=== PATIENT | male | born 1950 | race Caucasian/White ===

== ENCOUNTER 2017-01-28 11:03 | Inpatient (IN) | payer OTHER, MEDICARE ==
--- NOTE | ~2017-01-28 | OR ---
Unit #: [id number] #: [id number] Patient: ARPIT VALENZUELA [id number] [address] [place], [place] [address] [id number] I MR#: [id number] NAME: ARPIT VALENZUELA. ROOM: [facility] Date of Procedure: 01/29/2017 Admission Date: 01/28/2017 Surgeon: Dimitrios Greenwood M.D. : 1950 Attending Physician: Bailee Parra M.D. Primary Care Physician: Pantera Riggins M.D. OPERATIVE REPORT JOB NOTE: CC: HIPS PHYSICIAN. PREOPERATIVE DIAGNOSIS Anemia. POSTOPERATIVE DIAGNOSIS Anemia. PROCEDURE PERFORMED Esophagogastroduodenoscopy. ANESTHESIA Monitored anesthesia care. FINDINGS The patient had normal EGD except for small hiatal hernia. No blood present. No varices present. SPECIMENS None. COMPLICATIONS None apparent. CONDITION The patient tolerated the procedure well. INDICATIONS FOR PROCEDURE The patient is a 66-year-old white male, who drinks alcohol on a regular basis. He presents with significant anemia. His PT, PTT, and platelet count were normal. He presents at this time for evaluation by upper endoscopy. At this point, he does not want colonoscopy prep unless absolutely necessary. DESCRIPTION OF PROCEDURE After obtaining informed consent, the patient was brought to the endoscopy suite, and after adequate monitored anesthesia care, had the endoscope placed through the mouth into the upper esophagus under direct vision. It was advanced to the second and third portion of the duodenum without difficulty with the lumen always in view. The duodenum was normal as was the duodenal bulb. The pylorus opened normally. There was no blood present. Distal stomach was normal and no blood was present. On Unit #: [id number] #: [id number] Patient: ARPIT VALENZUELA retroflexing back to the GE junction, there was a small hiatal hernia, but no other abnormalities were found in the proximal third, middle third, or incisura. On pulling back above the GE junction, there were no varices seen. There was no stenosis, stricture, or neoplasm seen. No significant esophagitis. The remaining portion of the esophagus was within normal limits. Laryngeal structures were grossly normal as viewed from above. The scope was removed without difficulty. The patient went from the endoscopy suite to recovery area in stable condition. RECOMMENDATIONS Proceed with colonoscopy tomorrow. We will prep the patient today. Dictated by... Jamar Nunez/cynthia TD: 01/30/2017 00:54 JOB #: [id number] CC: [facility] OPERATIVE REPORT Page 1 of 1 X Dimitrios Greenwood MD X PROCEDURE OPERATIVE NOTE
--- NOTE | ~2017-01-28 | CR72 ---
[facility] A Service of [facility] & [facility] RADIOLOGY TEXT RESULTS PATIENT: ARPIT VALENZUELA LOCATION: [facility] [id number] : [birth year] UNIT #: [id number] AGE: [address]: Narda Alfred MD SEX: M ORDER DR: [id number] [facility] [address] [facility]. [place], [place] [address] [id number] I MR#: [id number] Acc #: [id number] NAME: ARPIT VALENZUELA. : 1950 SEX: M STUDY DATE/TIME: 01/28/2017 11:40 UNIT: [facility] ROOM: [id number] STUDY DESCRIPTION: CR Chest Single View Portable Attending Physician: Narda Alfred M.D. Ordering Physician: Ed Doctor [id number] [facility] Primary Care Physician: Pantera Riggins M.D. MEDICAL IMAGING REPORT This report is preliminary unless electronic signature is present EXAM Portable chest 01/28/2017 HISTORY 66-year-old male with cough and dyspnea for 4 days. Hypertension. Comparison chest 01/18/2012 FINDINGS Frontal chest demonstrates cardiomegaly with mild central vascular congestion and bilateral interstitial opacities, left greater than right. Small left pleural effusion not excluded. Early congestive failure not excluded in the appropriate clinical setting. No pneumothorax. IMPRESSION Cardiomegaly with mild central vascular congestion and bilateral interstitial opacities, left greater than right. Early congestive failure not excluded in the appropriate clinical setting. Questionable small left pleural effusion. Dictated by... Alireza Beckett M.D. THIS IS AN ELECTRONICALLY VERIFIED REPORT Alireza Beckett M.D. at 01/28/2017 2:59 PM GIOVANNA/sabine TD: 01/28/2017 14:53 JOB #: [id number] MEDICAL IMAGING REPORT Page 1 of 1 COPY
--- NOTE | ~2017-01-28 | CO ---
Unit #: [id number] #: [id number] Patient: ARPIT VALENZUELA [id number] [facility]. [place], [place] [address] [id number] I MR#: [id number] NAME: ARPIT VALENZUELA ROOM: [facility] Age: 66 Sex: M Admission Date: 01/28/2017 : 1950 Attending Physician: Narda Alfred M.D. Primary Care Physician: Pantera Rgigins M.D. Requesting Physician: Narda Alfred M.D. Consultation Date: 01/28/2017 CONSULTATION REPORT REASON FOR CONSULT Acute hyponatremia. HISTORY OF PRESENT ILLNESS Mr. Valnezuela is a pleasant 66-year-old male with history of alcohol abuse/alcoholism. He has not been to this facility for about four years and the last sodium at that time was 136. He denies any prior episodes of hyponatremia and denies ever being told that his sodium was low in the past. His sodium was 117 in the emergency department today with a creatinine of 1.0 which is his baseline. He does have a history of alcohol use and abuse and drinks 8 to 12 beers daily at home. He has been having increasing shortness of breath, dyspnea on exertion and paroxysmal nocturnal dyspnea worsening over the last several days but really worse for the last month or so. He also has hypertension and takes lisinopril, states compliance with this. He has also had some dark stools. He came to the emergency room short of breath and was noted to be hyponatremic as described above, also severe anemia with hemoglobin of 5.4 and also noted to be in CHF exacerbation so he has been started on IV Lasix. He also has COPD and he has been started on IV Solu-Medrol. Packed red blood cells have been ordered but transfusion has not been started as of yet. He denies excessive fluid intake. His sister at bedside states that he normally eats large amounts of salt with his meals. No NSAIDs. No recent IV contrast. He was not hypotensive in the emergency department. For the most part he feels well. No confusion noted per his family. He does admit to some lightheadedness, dizziness, unsteady gait and feelings of worsening fatigue. PAST MEDICAL HISTORY Past medical history is significant for: 1. Alcoholism. 2. Alcoholic gastritis. 3. COPD. 4. Continued tobacco abuse. 5. Alcohol abuse. 6. Hypertension. 7. Diabetes but not on medication. 8. History of CHF. His EF was 35% to 40% in 2012. PAST SURGICAL HISTORY His past surgical history is significant for EGD and prior orthopedic surgery on his arm. SOCIAL HISTORY Unit #: [id number] #: [id number] Patient: APRIT VALENZUELA Lives with his sister, smokes a pack a day, drinks 8 to 12 beers a day, occasional illicit drug use. FAMILY HISTORY Family history is negative for kidney problems or electrolyte problems that he knows. ALLERGIES None. HOME MEDICATIONS Lisinopril. REVIEW OF SYSTEMS GENERAL: In general complains of some lightheadedness, some dizziness, some gait instability. HEENT: No dysphagia or odynophagia. Eyes: No blurred vision. CARDIOVASCULAR: No chest pain. RESPIRATORY: As above. GASTROINTESTINAL: As above. GENITOURINARY: No dysuria. ENDOCRINE: No polyuria or polydipsia. DERMATOLOGIC: No rash or skin breakdown. HEMATOLOGIC: No bruising or bleeding. PSYCHIATRIC: No depression or anxiety. NEUROLOGIC: No focal deficits or weakness. PHYSICAL EXAMINATION GENERAL APPEARANCE: On exam he is awake, alert, pleasant and cooperative, in no acute distress, oriented x3. VITAL SIGNS: Temperature 97.5, pulse 81, respiratory rate 18, blood pressure 137/49, O2 sats 91% on room air. HEENT: Normocephalic. Mucous membranes moist. NECK: Neck is supple. No JVD. CHEST: Chest is clear, some occasional wheezes, no rhonchi. CARDIOVASCULAR EXAM: Regular rate and rhythm. S1, S2. ABDOMEN: Soft, nontender and nondistended. Positive bowel sounds. No organomegaly, rebound or guarding. EXTREMITIES: No cyanosis, clubbing or edema. DERMATOLOGIC: No rash or skin breakdown. HEMATOLOGIC: No bruising or bleeding. PSYCHIATRIC: No depression or anxiety. NEUROLOGIC: Oriented x3. No focal deficits. Following commands. SKIN: Pale but otherwise no edema. DIAGNOSTIC STUDIES IMAGING: Chest x-ray personally reviewed showing mild vascular congestion, small left effusion. LABORATORY: Labs personally reviewed; Glucose 120, BUN 70, creatinine 1, sodium 117, chloride 87, CO2 19, phosphorus 5.2, INR was 1.1, hemoglobin 5.4, white count 9.4, platelets 327,000. ASSESSMENT 1. New, acute hyponatremia likely secondary to acute congestive heart failure but mostly I think this is related to beer potomania with excessive alcohol, mainly beer which is hypotonic fluid, ingestion at home in the setting of congestive heart failure. Currently Unit #: [id number] #: [id number] Patient: ARPIT VALENZUELA asymptomatic so no need for 3% saline or Samsca. I think the sodium level will correct on its own with alcohol cessation and a mild fluid restriction and diuresis so will just monitor serial levels for now especially since he is asymptomatic. I think most of his lightheadedness, dizziness and gait instability are related more to his anemia. 2. History of alcohol abuse. Would need to monitor very closely for withdrawal. 3. Acute exacerbation of chronic obstructive pulmonary disease, on steroids. 4. Acute blood loss anemia with severe anemia, hemoglobin 5.4, transfusion has been ordered. Await GI evaluation. 5. Hypertension, on lisinopril. 6. Acute exacerbation of diastolic congestive heart failure. Repeat 2D echo. Agree with diuresis. Monitor volume status and electrolytes closely. PLAN As above. I agree with IV Lasix, transfusion, serial sodium levels. No need for 3% saline or Samsca currently. Check BMP q.6 h. Monitor electrolytes and volume closely with diuretics and will continue to follow him and monitor his progress closely. Thank you for the consult. Dictated by... Demarcus Osorio M.D. ANITA/ra TD: 01/28/2017 17:22 JOB #: [id number] CONSULTATION REPORT Page 1 of 1 X DEMARCUS OSORIO CONSULTATION REPORT
--- NOTE | ~2017-01-28 | OR ---
Unit #: [id number] #: [id number] Patient: ARPIT VALENZUELA [id number] [facility]. [place], [place] [address] [id number] I MR#: [id number] NAME: ARPIT VALENZUELA. ROOM: [facility] Date of Procedure: 01/30/2017 Admission Date: 01/28/2017 Surgeon: Dimitrios Greenwood M.D. : 1950 Attending Physician: Bailee Parra M.D. Primary Care Physician: Pantera Riggins M.D. OPERATIVE REPORT PREOPERATIVE DIAGNOSIS Anemia. POSTOPERATIVE DIAGNOSIS Anemia. PROCEDURE PERFORMED Colonoscopy to cecum. ANESTHESIA Monitored anesthesia care. FINDINGS The patient was found to have sigmoid diverticulosis. SPECIMENS None. COMPLICATIONS None apparent. CONDITION The patient tolerated the procedure well. INDICATIONS FOR PROCEDURE The patient is a 66-year-old gentleman, who presented with severe microcytic hypochromic anemia. He has a long history of heavy alcohol use. He had upper endoscopy performed yesterday, which showed no significant abnormality. He presents at this time for colonoscopy. DESCRIPTION OF PROCEDURE After obtaining informed consent, the patient was brought to the endoscopy suite and after adequate monitored anesthesia care, had the colonoscope placed through the anus, and had the colonoscope slowly advanced with the lumen always in view to the level of the cecum. The cecum was normal as was the ileocecal valve. The ascending colon was normal as was the hepatic flexure, transverse colon, splenic flexure, and descending colon. There were few scattered diverticula in the sigmoid colon. The rectosigmoid and rectum were all within normal limits. On retroflexing in the rectum to the anorectal junction, there was no obvious abnormality seen. The scope was removed without difficulty. The patient tolerated Unit #: [id number] #: [id number] Patient: ARPIT VALENZUELA the procedure well and went from the endoscopy suite to recovery area in stable condition. RECOMMENDATIONS We will have Cancer and blood Specialists to see the patient for evaluation of anemia. Resume diet of choice and medication orders. Dictated by... Jamar Nunez/cynthia TD: 01/30/2017 22:33 JOB #: [id number] CC: [facility] Penny/huma Please Delete OPERATIVE REPORT Page 1 of 1 X Dimitrios Greenwood MD PROCEDURE OPERATIVE NOTE
--- NOTE | ~2017-01-28 | DS ---
Unit #: [id number] #: [id number] Patient: ARPIT VALENZUELA [id number] [address] [address] [id number] MR#: [id number] NAME: ARPIT VALENZUELA. ROOM: [facility] Age: 66 Sex: M Admission Date: 01/28/2017 : 1950 Discharge Date: Attending Physician: Bailee Parra M.D. Primary Care Physician: Pantera Riggins M.D. DISCHARGE SUMMARY DISCHARGE DIAGNOSES 1. Acute hypoxic respiratory failure secondary to severe anemia, symptomatic. 2. Severe anemia, iron deficiency. 3. Possible gastrointestinal bleed. 4. Chronic obstructive pulmonary disease with exacerbation. 5. Smoking. 6. Acute systolic heart failure. 7. Hyponatremia secondary to alcohol abuse. 8. Alcohol dependence. 9. Hypertension. 10. Diabetes mellitus type 2, uncontrolled. 11. Hypokalemia. 12. Hypophosphatemia. CONSULTATIONS 1. Dr. Kevin Henderson. 2. LSA. PROCEDURES Patient had EGD and colonoscopy. EGD showed small hiatal hernia. Colonoscopy did not show any active bleeding. ALLERGIES None. DISCHARGE MEDICATIONS 1. Lasix 40 p.o. daily. 2. Multivitamin 1 tablet daily. 3. Folic acid 1 mg daily. 4. Thiamine 100 daily. 5. Ferrous sulfate 325 p.o. b.i.d. DIAGNOSTIC STUDIES LABORATORY: Sodium 133, potassium 3.3, creatinine 1, AST 33, ALT 21, alkaline phosphatase 146, phosphorus 2.3, and magnesium 1.9. WBC 19.2, hemoglobin 8.3, and platelets 337. Blood cultures negative. Hemoglobin A1c 5. TSH 2.17. vitamin B12 468. HOSPITALIZATION COURSE This is a 66-year-old admitted because of shortness of breath. 1. Acute hypoxic respiratory failure from severe anemia, resolved. 2. Anemia, iron deficiency. Initial diagnosis was GI bleed, but EGD and colonoscopy negative. Possible GI bleed. Patient received blood Unit #: [id number] #: [id number] Patient: ARPIT VALENZUELA transfusion. Currently, hemoglobin is 8.3. Continue with ferrous sulfate. Hematology has been consulted. Patient will follow up with them as an outpatient. 3. Possible GI bleed. EGD and colonoscopy negative. Follow with hematology. 4. Hyponatremia secondary to alcohol abuse. Patient received Lasix. Currently, sodium is 133. Continue with the Lasix for a few more days. 5. Hypokalemia. Replaced with p.o. potassium. 6. Acute systolic heart failure. Patient received Lasix. Currently compensated. Patient does have chronic systolic heart failure. 7. Acute COPD exacerbation, resolved. 8. Smoking and alcohol dependence. Advised to quit. DISPOSITION Patient discharged home after seen by hematology. DISCHARGE INSTRUCTIONS 1. Follow up with family physician in one week's time. 2. Follow up with patient accounting representative in 2-3 weeks' time for anemia. Dictated by... Jamar Davila/lali TD: 01/30/2017 10:08 JOB #: [id number] DISCHARGE SUMMARY Page 1 of 1 X Bailee Parra MD X DISCHARGE SUMMARY
--- NOTE | ~2017-01-28 | CO ---
Unit #: [id number] #: [id number] Patient: ARPIT VALENZUELA [id number] [place], [place] [address] [id number] I MR#: [id number] NAME: ARPIT VALENZUELA. ROOM: [facility] Age: 66 Sex: M Admission Date: 01/28/2017 : 1950 Attending Physician: Bailee Parra M.D. Primary Care Physician: Pantera Riggins M.D. CONSULTATION REPORT CHIEF COMPLAINT Anemia, hemoglobin 5.4, COPD, CHF, legally blind. HISTORY OF PRESENT ILLNESS This is a 66-year-old male who recently became legally blind. The etiology is not obvious. He came short of breath, dyspnea on exertion and decline in performance status. His CBC showed WBC 9.4, hemoglobin 5.4, hematocrit 19.8, MCV 55 and platelets 327. He received PRBC transfusion. Today, his hemoglobin has increased to 8.3. He is also receiving ferrous sulfate. The patient had an EGD and colonoscopy that was all normal. No masses. Chest x-ray is normal. Please note that he has a significant history of smoking and drinking. He still smokes and drinks. REVIEW OF SYSTEMS CONSTITUTIONAL: No fever, no chills, no sweats, no weight loss. EYES: No visual symptoms. EARS, NOSE AND THROAT: There is no runny nose or sore throat or difficulty hearing. CARDIOVASCULAR: No chest pain. No shortness of breath. No palpitations. No orthopnea. No PND. RESPIRATORY: As mentioned above. GASTROINTESTINAL: No nausea, vomiting, diarrhea, constipation, hematochezia or melena. GENITOURINARY: No urinary frequency, hesitancy or urgency. No blood in the urine. MUSCULOSKELETAL: No muscle or joint pain. NEUROLOGIC: No headache. No numbness or tingling. No weakness. No seizure. PSYCHIATRIC: No anxiety, depression or mood disturbance. ENDOCRINE: No excessive urination or thirst. DERMATOLOGIC: No rash or change in the skin. ALLERGIC/IMMUNOLOGIC: No symptoms. HEMATOLOGIC/LYMPHATIC: Denies any symptoms. PAST MEDICAL HISTORY 1. Severe anemia, iron deficiency. 2. Leukocytosis. 3. COPD. 4. CHF. Unit #: [id number] #: [id number] Patient: ARPIT VALENZUELA ALLERGIES None. SOCIAL HISTORY The patient admits to smoking two packs per day for 50 years, trying to cut down. He drinks ten bottles of beer every day. Used to work in a factory. SURGICAL HISTORY None. FAMILY HISTORY Mother had some sort of cancer, he is not sure. MEDICATIONS His current medications include: 1. Potassium. 2. Protonix. 3. Folic acid. 4. Librium. 5. Tylenol. 6. Lasix. 7. Magnesium oxide. 8. Combivent. 9. Thiamine. PHYSICAL EXAMINATION VITAL SIGNS: Afebrile. Pulse 77, respiratory rate 18, O2 sats on 4L 100%, blood pressure 126/69. GENERAL: Patient is comfortable. ECOG is 0. The patient is pleasant. HEENT: Moist mucosa. Pupils equally reactive to light. Extraocular muscles intact. Sclerae anicteric. No obvious bleeding from nasal mucosa or oral mucosa. Scalp normal. Hearing normal. NECK: No JVD. No lymphadenopathy. LYMPHATIC/HEMATOLOGIC: There is no palpable adenopathy in the neck, axilla or inguinal area. CARDIOVASCULAR: S1, S2. Regular rate and rhythm. No S3 or S4. RESPIRATORY: Chest symmetrical, normal. Clear to auscultation bilaterally. No wheezes, no rales, no rhonchi. No dullness to percussion. ABDOMEN/GASTROINTESTINAL: Abdomen is soft, nontender, nondistended. No hepatosplenomegaly. EXTREMITIES: There is no clubbing, no cyanosis, no edema. No varicose veins. NEUROLOGICAL: Patient is alert, awake and oriented x3. Cranial nerves II-XII are intact. Sensory grossly intact. Motor is 4/5 in all four extremities. Gait is normal. Station is normal. Language is normal. Memory is normal. DTRs +2 in all four extremities. MUSCULOSKELETAL: No joint swelling. No bony tenderness. No muscle tenderness. SKIN: No petechiae, no rash, no ecchymosis. PSYCHIATRIC: No anxiety. No delusions or hallucinations. There is no agitation. Eye contact is normal. Affect is appropriate. There is no flight of ideas. DIAGNOSTIC STUDIES LABORATORY: Labs as mentioned. Unit #: [id number] #: [id number] Patient: ARPIT VALENZUELA IMAGING: Chest x-ray on 01/28/2017. CHF, no mass, no pneumonia. ASSESSMENT AND PLAN This is a 66-year-old male with the following active issues: 1. Anemia: His MCV is low. His (1) less than 4%, ferritin 6 and retic count 1.3%. At present, it looks like iron deficiency anemia. However, given his age, in the future he needs a bone marrow biopsy. I will follow the patient next week as an outpatient. I will give him intravenous iron. My office will call his sister and bring him next week. 2. Respiration: He has chronic obstructive pulmonary disease, he has more than 100 pack-years of smoking. As an outpatient, he needs a CT of the chest along with cancer screening. 3. Cardiovascular: He has congestive heart failure. He is receiving Lasix. 4. Smoking cessation: Encouraged him to quit smoking. 5. ETOH: He is drinking beer. I encouraged him to quit drinking. Will work with him as an outpatient. I will refer him for smoking cessation program. Dictated by... Abner Martell M.D. YAO/fina TD: 01/30/2017 12:28 JOB #: [id number] CONSULTATION REPORT Page 1 of 1 X Abner Martell MD X CONSULTATION REPORT
--- NOTE | ~2017-01-28 | A ---
[facility] Nutrition Therapy DATE: 01/29/17 Patient: ARPIT VALENZUELA Physician: RHETT Address: [address] [place] [address] Room/Bed: [address] [place] [address], Zip: [place] [address] Admit Date: 01/28/17 Date of : [birth year] Height: 5 6 Weight: 153 69.4 NUTRITIONAL ASSESSMENT: REASON: Consult RE: ETOH, iron deficiency anemia 66 yo male admitted for dyspnea, anemia PMH: COPD, alcohol related dementia, HTN, DM, CHF, alcohol/tobacco abuse Anthropometrics: Ht: 5'6" Wt: 69.5 kg (153#) BMI: 24.7 Labs: Na+ 128, K+ 3.3, Cl- 95, Gluc 135, POC 143, Iron 19 Meds: Novolog, D5%, Folic acid, Thiamine, Furosemide, NaCl, Solu-medrol I/O & Bowel function: 735/2204, Last BM 01/28 Skin Integrity: no issues noted Edema: BLE trace Assessment: Chart reviewed, events noted. Pt is currently NPO/clear liquids d/t procedures. Pt had EGD this am which found a small hiatal hernia. Pt was consuming jello during visit, pt reported this was the first time eating in 2 days d/t NPO status. RD graphic design intern provided verbal iron deficiency anemia education. Pt refused written education. Pt verbalized understanding. Pt had no diet questions at this time. Patient reports no recent changes in weight. See recs below. Dx: Inadequate oral intake RT current condition AEB NPO/clear liquid diet. Intervention: 1. Diet education Monitoring, Evaluation and Goals: 1. PO intake; consume >75% of meals 2. Labs; WNL 3. Weight; prevent unintentional weight loss Recommendations: 1. Once medically feasible, advance diet as tolerated to 2 gram sodium diet. Fluids per MD noting hyponatremia. [facility] Nutrition Therapy DATE: 01/29/17 Patient: ARPIT VALENZUELA Physician: RHETT Address: [address] [place] [address] Room/Bed: [address] [place] [address], Zip: [place] [address] Admit Date: 01/28/17 Date of : [birth year] Height: 5 6 Weight: [address] if further diet education is needed/requested. 3. Continue Thiamine/folic acid, encourage cessation of alcohol. Pt is at a mild nutritional risk. RD will f/u per protocol. Respectfully, Shadia Ho, Culvert Installer Loyda Rodriges RD, LD [facility] cc: client file
--- NOTE | ~2017-01-28 | EKG ---
PATIENT: ARPIT VALENZUELA UNIT #: [id number] Ventricular Rate: 86 BPM Atrial Rate: 86 BPM P-R Interval: 168 ms QRS Duration: 110 ms Q-T Interval: 412 ms QTC Calculation(Bezet): 493 ms P [place]: 32 degrees Calculated R [place]: -8 degrees Calculated T [place]: 67 degrees Diagnosis Line: Normal sinus rhythm Diagnosis Line: Low voltage QRS Diagnosis Line: Poor R wave progression questionable lead position Diagnosis Line: or body habitus Diagnosis Line: Borderline ECG Diagnosis Line: When compared with ECG of 20-JAN-2012 06:18, Diagnosis Line: Questionable change in initial forces of Septal Diagnosis Line: leads Diagnosis Line: T wave inversion no longer evident in Inferior Diagnosis Line: leads Diagnosis Line: Confirmed by YUSUF HIGHTOWER MD ([id number]) on 01/28/2017 Diagnosis Line: 4:13:41 PM INTERPRETING MD: CAMPBELL BORJAS
--- NOTE | ~2017-01-28 | HP ---
Unit #: [id number] #: [id number] Patient: ARPIT VALENZUELA [id number] [facility]. [place], [place] [address] [id number] MR#: [id number] NAME: ARPIT VALENZUELA ROOM: Age: 66 Sex: M Admission Date: 01/28/2017 : 1950 Attending Physician: Ta Velasquez M.D. Primary Care Physician: Pantera Riggins M.D. HISTORY AND PHYSICAL CHIEF COMPLAINT Short of air times four days. HISTORY OF PRESENT ILLNESS The patient is a 66-year-old male with a past medical history of chronic obstructive pulmonary disease, congestive heart failure, alcohol abuse, tobacco abuse, hypertension and diabetes. He presented to the emergency department for evaluation of the above. The patient states that he has had about a month history of increasing shortness of breath and nonproductive cough. He denies any fever. No chest pain. He states that he has two pillow orthopnea that is not a new problem. He also reports paroxysmal nocturnal dyspnea that has been worse over the past couple of days. He also reports dyspnea on exertion when walking across the room. He has had intermittent loose stool. He noted that the stool has been dark for the past couple of days. He denies any abdominal pain. His only medication is lisinopril. He states that he has been taking it as prescribed. The patient, per record review, has a history of diabetes, although the patient denies any history of diabetes. He is a daily drinker and drinks 8-12 beers daily. His last drink was this morning and consisted of one beer. In the emergency department initial pulse and blood pressure were 81 and 137/49 respectively. Laboratory notable for hemoglobin 5.4, hematocrit 19.8 respectively. Sodium 117. Stool was hemoccult positive per emergency room documentation. He was given 125 mg of Solu-Medrol. Two units of packed red blood cells have been ordered. He is being admitted to [facility] for evaluation and further treatment. PAST MEDICAL HISTORY 1. Admission to [facility] 01/18/2012 for alcohol withdrawal and GI bleed. He underwent EGD during that admission that showed prepyloric antral moderately severe erosive gastritis with severe focal duodenitis. The patient also had a distal esophageal Schatzki ring. 2. Chronic obstructive pulmonary disease, not on home oxygen, with continued tobacco abuse. 3. Alcohol related dementia per record review. 4. Hypertension. 5. Diabetes. Again, the patient denies any history of diabetes. He does not check blood sugars at home. I do not see a hemoglobin A1c in [facility]. 6. Congestive heart failure. The patient has seen Dr. Gayatn in the past. He had an echocardiogram 01/19/2012 that showed an ejection Unit #: [id number] #: [id number] Patient: ARPIT VALENZUELA fraction of 35%-40%, with Doppler flow pattern suggestive of impaired left ventricular relaxation, mild to moderate global hypokinesis of the left ventricle, mild asymmetric left ventricular hypertrophy and normal valves. PAST SURGICAL HISTORY 1. EGD. 2. Forearm surgery. SOCIAL HISTORY The patient lives with his sister. He smokes a little over a pack of cigarettes daily. He is a daily drinker and drinks 8-12 beers daily. He also reports marijuana use. He walks without assistance. His code status is a full code. FAMILY HISTORY Notable for his dad having "heart problems." His mother had some type of malignancy. ALLERGIES No known drug allergies. HOME MEDICATIONS Lisinopril. Home medications will need to be reviewed and verified. REVIEW OF SYSTEMS A complete review of systems is negative except as indicated in the history of present illness. PHYSICAL EXAMINATION GENERAL: The patient is a male who is awake and alert, in no acute distress. VITALS: Temperature 97.5, pulse 81, respiratory rate 18, blood pressure 137/49, oxygen saturation 91% on room air. HEENT: The head is atraumatic. Conjunctivae are pale. Mucous membranes are moist. NECK: Supple. Trachea midline. LUNGS: Scattered wheezes and crackles. Breathing is mildly labored with conversation. HEART: Regular rate and rhythm. ABDOMEN: Soft and nontender with bowel sounds present in all four quadrants. RECTAL: Hemoccult positive per my discussion with the emergency room staff. EXTREMITIES: One plus pitting edema. NEUROLOGIC: The patient is oriented times three. He follows commands. PSYCHIATRIC: Mood and affect are normal. The patient is cooperative. SKIN: Generally pale. DIAGNOSTIC STUDIES IMAGING: Chest x-ray shows cardiomegaly with mild vascular congestion and possibly small left pleural effusion. LABORATORY: Troponin is less than 0.05. CMP is notable for sodium 117, chloride 87, bicarb 19, anion gap is 11, glucose 120, calcium 8.1, AST and ALT 64 and 21 respectively. Alkaline phosphatase 187. CBC notable for Unit #: [id number] #: [id number] Patient: ARPIT VALENZUELA hemoglobin 5.4, hematocrit 19.8, MCV 55.1, RDW 20.7, BNP 582, INR 1.1. CARDIOVASCULAR: EKG shows normal sinus rhythm with a rate of 86 beats per minute. ASSESSMENT The patient is a 66-year-old male with 1. Acute respiratory failure. The patient's oxygen saturation dropped to 88% during the course of his evaluation in the emergency department. This is likely multifactorial in etiology with GI bleed, chronic obstructive pulmonary disease and congestive heart failure contributing. 2. Symptomatic anemia. The patient's hemoglobin was 12.1 on 01/10/2013 and it is 5.4 today. The patient had an EGD in 2011 that showed results as noted above. 3. GI bleed. Two units of packed red blood cells have been ordered. 4. Chronic obstructive pulmonary disease exacerbation with continued tobacco abuse. The patient received 125 mg of Solu-Medrol in the emergency department. 5. Congestive heart failure with an ejection fraction of 35%-40% noted on echocardiogram 01/19/2012. With possible small left pleural effusion noted on chest x-ray. 6. Hyponatremia. Likely secondary to alcohol abuse. The patient's sodium was 136 on 01/10/2013 and it is 117 today. Sodium has been as low as 107 on 01/18/2012. He has seen Dr. Rneo in the past. 7. Alcohol abuse with last drink being today. 8. Tobacco abuse. 9. Hypertension. 10. Diabetes, although the patient denies this history. PLAN 1. Admit to intermediate level. 2. N.p.o. except medications for possible endoscopy. 3. Hemoglobin and hematocrit one hour after transfusion and q.6 h. 4. Iron studies, B12 and folate. 5. Protonix 80 mg IV times 1 now, followed by Protonix drip at 8 mg per hour. 6. Consult [facility] regarding GI bleed. 7. Supplemental oxygen. 8. Duo-Nebs q.4 h. while awake and q.2 h. p.r.n. 9. Solu-Medrol 80 mg IV q.12 h. 10. Strict ins and outs. 11. Daily weights. 12. Two-dimensional echo. 13. Serial cardiac enzymes. 14. Lasix 40 mg IV daily, with first dose after first unit of packed red blood cells. 15. Urine sodium and osmolality. 16. Serum osmolality. 17. Repeat BMP later this evening to follow up hyponatremia. 18. Neurologic checks. 19. Consult Dr. Reno regarding hyponatremia. 20. hospital account manager/social work consult regarding alcohol abuse. 21. Librium. 22. Thiamine, multivitamin and folic acid. 23. CIWA scoring. 24. Hemoglobin A1c. 25. Low-dose sliding scale insulin with Accu-Cheks. Unit #: [id number] #: [id number] Patient: ARPIT VALENZUELA 26. Check magnesium level. 27. Repeat labs in the morning. 28. SCDs for DVT prophylaxis. 29. Additional workup and consultants based on the above. 30. Regarding code status, the patient is a full code. Dictated by Jamar Umanzor/florecita TD: 01/28/2017 13:56 JOB #: [id number] HISTORY AND PHYSICAL Page 1 of 1 X Narda Alfred MD HISTORY AND PHYSICAL
--- NOTE | ~2017-01-28 | CO ---
Unit #: [id number] #: [id number] Patient: ARPIT VALENZUELA [id number] [place], [place] [address] [id number] MR#: [id number] NAME: ARPIT VALENZUELA. ROOM: [facility] Age: 66 Sex: M Admission Date: 01/28/2017 : 1950 Attending Physician: Bailee Parra M.D. Primary Care Physician: Pantera Riggins M.D. CONSULTATION REPORT BRIEF HISTORY Patient is a 66-year-old gentleman who presented with shortness of breath and dyspnea to the emergency room. He was found to be anemic with a hemoglobin of 5.5. Denies any melena. No hematemesis. Is a daily drinker. Last admission was in 2011 for alcohol withdrawal and GI bleed. PAST HISTORY 1. COPD. 2. Diabetes. 3. Congestive heart failure. PAST SURGICAL HISTORY He has had no abdominal operations. SOCIAL HISTORY He does drink daily. Also smokes. FAMILY HISTORY Negative for GI malignancy. ALLERGIES He has no known allergies. HOME MEDICATIONS He is on lisinopril. REVIEW OF SYSTEMS No cardiopulmonary complaints at this time. Ten systems reviewed and negative. PHYSICAL EXAMINATION GENERAL: He is awake, alert, appropriate. VITAL SIGNS: Currently afebrile. HEENT: Unremarkable. NECK: Neck is supple. No JVD. Trachea midline. LUNGS: Clear to auscultation. Bilateral breath sounds are symmetric. CARDIOVASCULAR: Regular rate and rhythm. ABDOMEN: His abdomen is soft. It is nontender, nondistended. I palpate no mass. No hepatosplenomegaly. DIAGNOSTIC STUDIES LABS: Labs show a hemoglobin of 6.3 after 2 units of blood. White count 4.7. Chemistry shows a glucose of 135, potassium 3.3. Unit #: [id number] #: [id number] Patient: ARPIT VALENZUELA ASSESSMENT 1. Anemia with GI blood loss. 2. Hypokalemia. 3. COPD. PLAN Recommend transfusion to hemoglobin greater than 8. We will plan for EGD. If negative, would continue with colonoscopy. Will also add proton pump inhibitors. Dictated by... Carlton Caldwell M.D. AMIRAH/chapito TD: 01/29/2017 08:03 JOB #: [id number] CONSULTATION REPORT Page 1 of 1 X Carlton Caldwell MD CONSULTATION REPORT
[~2017-01-28 11:03] MED LIST: COREG6.25 MG PO; LABETALOL HCL100 MG PO; LABETALOL HCL200 MG PO; LISINOPRIL PO; NEURONTIN100 MG PO; SPIRONOLAC1 TAB 25/2 PO; ZESTORETIC 20/21 TAB PO
[2017-01-28 11:47] LABS: POC - CKMB 2.2 ng/mL (0.0-7.9); POC - TROPONIN <0.05 ng/mL (<=0.05)
[2017-01-28 12:02] LABS: BASOPHIL# 0.1 X10e3 (0-0.3); BASOPHIL% 1.1 % (0-2.5); EOSINOPHIL# 0.1 X10e3 (0-0.7); EOSINOPHIL% 0.9 % (0.0-7.0); HEMATOCRIT 19.8 % (38.0-50.0); LYMPHOCYTE# 1.1 X10e3 (1.0-3.5); LYMPHOCYTE% 11.6 % (17.0-45.0); MEAN CELL VOLUME 55.1 FL (83-96); MEAN CORPUSCULAR HEMOGLOBIN 15.1 PG (28-34); MEAN CORPUSCULAR HGB CONC 27.4 g/dL (30-36); MEAN PLATELET VOLUME 8.9 FL (6.5-11.5); MONOCYTE# 1.1 X10e3 (0-1.0); MONOCYTE% 11.9 % (3.0-12.0); NEUTROPHIL% 74.5 % (40-75); PLATELET COUNT 327 X10e3 (140-420); RED CELL DISTRIBUTION WIDTH 20.7 % (11.0-15.5); WHITE BLOOD COUNT 9.4 X10e3 (4.0-10.5)
[2017-01-28 12:04] LABS: DIFF IND YES; HEMOGLOBIN 5.4 gm/dL (13.0-16.0)
[2017-01-28 12:15] LABS: CALCIUM SERUM 8.1 mg/dL (8.4-10.2); GLOM FILT RATE Estimated 78.6 mL/min (>60); POTASSIUM 3.6 mmol/L (3.5-5.1)
[2017-01-28 12:20] LABS: PLATELET ESTIMATE NORMAL (NORMAL)
[2017-01-28 12:21] LABS: ANISOCYTOSIS MOD
[2017-01-28 12:34] LABS: ALBUMIN SERUM 3.8 g/dL (3.5-5.0); BILIRUBIN, DIRECT 0.3 mg/dL (0.0-0.2); BILIRUBIN,TOTAL 0.3 mg/dL (0.2-2.0); PROTEIN TOTAL SERUM 7.9 g/dL (6.0-8.3)
[2017-01-28 12:50] LABS: INR 1.1; PARTIAL THROMBOPLASTIN TIME 27.1 SECONDS (23.5-31.3)
[2017-01-28 14:39] LABS: IRON SERUM 19 ug/dL (45-182); MAGNESIUM 1.8 mg/dL (1.6-3.0); TOTAL IRON BINDING CAPACITY 482 ug/dL (252-460); TRANSFERRIN 345 mg/dL (180-329); TRANSFERRIN SATURATION 4 % (20-50)
[2017-01-28 15:09] LABS: OSMOLALITY,SERUM 299 mOsmo/kg (280-300)
[2017-01-28 15:44] LABS: FOLATE (FOLIC ACID) >23.6 ng/mL (>5.8)
[2017-01-28 17:26] LABS: CALCIUM SERUM 8.3 mg/dL (8.4-10.2); GLOM FILT RATE Estimated 78.6 mL/min (>60)
[2017-01-28 18:23] LABS: CALCIUM SERUM 8.3 mg/dL (8.4-10.2); GLOM FILT RATE Estimated 78.6 mL/min (>60)
[2017-01-28 18:44] LABS: %MB 6.8 % (0.0-4.0); MB 6.9 ng/ml
[2017-01-28 21:25] LABS: SODIUM URINE RANDOM 14 mmol/L
[2017-01-28 22:42] LABS: OSMOLALITY,URINE 167 mOsmo/kg (250-900)
[2017-01-28 23:18] LABS: HEMATOCRIT 24.3 % (38.0-50.0); HEMOGLOBIN 7.1 gm/dL (13.0-16.0); MEAN CELL VOLUME 61.9 FL (83-96); MEAN CORPUSCULAR HEMOGLOBIN 18.1 PG (28-34); MEAN CORPUSCULAR HGB CONC 29.2 g/dL (30-36); MEAN PLATELET VOLUME 8.7 FL (6.5-11.5); RED BLOOD COUNT 3.92 X10e (3.90-5.60); RED CELL DISTRIBUTION WIDTH 29.1 % (11.0-15.5); WHITE BLOOD COUNT 4.5 X10e3 (4.0-10.5)
[2017-01-28 23:58] LABS: %MB 5.8 % (0.0-4.0); MB 6.6 ng/ml
[2017-01-29 00:17] LABS: CALCIUM SERUM 8.2 mg/dL (8.4-10.2); GLOM FILT RATE Estimated 78.6 mL/min (>60); POTASSIUM 3.7 mmol/L (3.5-5.1)
[2017-01-29 06:00] LABS: BASOPHIL% 0.1 % (0-2.5); HEMATOCRIT 21.1 % (38.0-50.0); LYMPHOCYTE# 0.3 X10e3 (1.0-3.5); LYMPHOCYTE% 5.5 % (17.0-45.0); MEAN CELL VOLUME 60.7 FL (83-96); MEAN CORPUSCULAR HEMOGLOBIN 18.1 PG (28-34); MEAN CORPUSCULAR HGB CONC 29.8 g/dL (30-36); MEAN PLATELET VOLUME 8.6 FL (6.5-11.5); MONOCYTE% 0.9 % (3.0-12.0); NEUTROPHIL# 4.4 X10e3 (1.5-7.1); NEUTROPHIL% 93.5 % (40-75); PLATELET COUNT 305 X10e3 (140-420); RED BLOOD COUNT 3.48 X10e (3.90-5.60); RED CELL DISTRIBUTION WIDTH 29.9 % (11.0-15.5); WHITE BLOOD COUNT 4.7 X10e3 (4.0-10.5)
[2017-01-29 06:11] LABS: DIFF IND NO; HEMOGLOBIN 6.3 gm/dL (13.0-16.0)
[2017-01-29 06:19] LABS: ALBUMIN SERUM 3.6 g/dL (3.5-5.0); BILIRUBIN,TOTAL 0.7 mg/dL (0.2-2.0); BUN/CREATININE RATIO 10.83; CALCIUM SERUM 8.4 mg/dL (8.4-10.2); CREATININE SERUM 1.2 mg/dL (0.6-1.4); GLOM FILT RATE Estimated 63.1 mL/min (>60); MAGNESIUM 1.8 mg/dL (1.6-3.0); POTASSIUM 3.3 mmol/L (3.5-5.1); PROTEIN TOTAL SERUM 7.4 g/dL (6.0-8.3)
[2017-01-29 06:29] LABS: THYROID STIMULATING HORMONE 2.17 uIU/ml (0.34-5.60)
[2017-01-29 14:48] LABS: BASOPHIL% 0.1 % (0-2.5); HEMATOCRIT 26.6 % (38.0-50.0); HEMOGLOBIN 7.8 gm/dL (13.0-16.0); LYMPHOCYTE# 0.2 X10e3 (1.0-3.5); MEAN CELL VOLUME 63.9 FL (83-96); MEAN CORPUSCULAR HEMOGLOBIN 18.7 PG (28-34); MEAN CORPUSCULAR HGB CONC 29.3 g/dL (30-36); MEAN PLATELET VOLUME 8.6 FL (6.5-11.5); MONOCYTE# 0.2 X10e3 (0-1.0); MONOCYTE% 1.4 % (3.0-12.0); NEUTROPHIL% 96.5 % (40-75); PLATELET COUNT 352 X10e3 (140-420); RED BLOOD COUNT 4.17 X10e (3.90-5.60); RED CELL DISTRIBUTION WIDTH 32.2 % (11.0-15.5); WHITE BLOOD COUNT 12.4 X10e3 (4.0-10.5)
[2017-01-29 14:50] LABS: DIFF IND NO
[2017-01-29 14:58] LABS: ALBUMIN SERUM 4.1 g/dL (3.5-5.0); BILIRUBIN,TOTAL 1.4 mg/dL (0.2-2.0); BUN/CREATININE RATIO 13.33; CALCIUM SERUM 8.5 mg/dL (8.4-10.2); CREATININE SERUM 1.2 mg/dL (0.6-1.4); GLOM FILT RATE Estimated 63.1 mL/min (>60); POTASSIUM 3.3 mmol/L (3.5-5.1); PROTEIN TOTAL SERUM 8.5 g/dL (6.0-8.3)
[2017-01-29 19:56] LABS: HEMATOCRIT 29.5 % (38.0-50.0); HEMOGLOBIN 8.9 gm/dL (13.0-16.0); MEAN CELL VOLUME 65.8 FL (83-96); MEAN CORPUSCULAR HEMOGLOBIN 19.9 PG (28-34); MEAN CORPUSCULAR HGB CONC 30.2 g/dL (30-36); MEAN PLATELET VOLUME 8.6 FL (6.5-11.5); RED BLOOD COUNT 4.48 X10e (3.90-5.60); RED CELL DISTRIBUTION WIDTH 31.7 % (11.0-15.5); WHITE BLOOD COUNT 19.4 X10e3 (4.0-10.5)
[2017-01-29 20:06] LABS: BUN/CREATININE RATIO 13.84; CALCIUM SERUM 8.6 mg/dL (8.4-10.2); CREATININE SERUM 1.3 mg/dL (0.6-1.4); GLOM FILT RATE Estimated 57.3 mL/min (>60); POTASSIUM 3.6 mmol/L (3.5-5.1)
[2017-01-30 05:33] LABS: HEMATOCRIT 27.8 % (38.0-50.0); HEMOGLOBIN 8.3 gm/dL (13.0-16.0); MEAN CELL VOLUME 65.6 FL (83-96); MEAN CORPUSCULAR HEMOGLOBIN 19.5 PG (28-34); MEAN CORPUSCULAR HGB CONC 29.7 g/dL (30-36); MEAN PLATELET VOLUME 8.7 FL (6.5-11.5); RED BLOOD COUNT 4.24 X10e (3.90-5.60); RED CELL DISTRIBUTION WIDTH 31.9 % (11.0-15.5); WHITE BLOOD COUNT 19.2 X10e3 (4.0-10.5)
[2017-01-30 06:01] LABS: ALBUMIN SERUM 3.7 g/dL (3.5-5.0); CALCIUM SERUM 8.2 mg/dL (8.4-10.2); GLOM FILT RATE Estimated 78.6 mL/min (>60); MAGNESIUM 1.9 mg/dL (1.6-3.0); PHOSPHOROUS 2.3 mg/dL (2.5-4.6); POTASSIUM 3.3 mmol/L (3.5-5.1); PROTEIN TOTAL SERUM 6.9 g/dL (6.0-8.3)
[2017-01-30] MEDS ORDERED: FUROSEMIDE40 MG PO (10:23)
[2017-01-30] MEDS ORDERED: MULTIVITAMINS1 EAC4 PO (10:24)
[2017-01-30] MEDS ORDERED: FOLIC ACID1 MG PO (10:25)
[2017-01-30] MEDS ORDERED: THIAMINE HCL100 M2 PO (10:25)
[2017-01-30] MEDS ORDERED: FERROUS SULFATE PO (10:26)
== END 2017-01-30 17:20 | disposition home or self-care (01) | DRG 377 ==
LOC: CED 11:03 → CEDOF 13:45 → CED 14:08 → CEDOF 14:08 → C3A PCU 14:08 → CEDOF 16:00 → C3A PCU 16:00
PROVIDERS: Emergency Medicine; Family Medicine; Internal Medicine; Surgery
PROC: B24BZZZ Ultrasonography of Heart with Aorta (ICD-10-PCS; principal; 2017-01-28)
PROC: 0DJ08ZZ Inspection of Upper Intestinal Tract, Via Natural or Artificial Opening Endoscopic (ICD-10-PCS; 2017-01-29)
PROC: 30233N1 Transfusion of Nonautologous Red Blood Cells into Peripheral Vein, Percutaneous Approach (ICD-10-PCS; 2017-01-29)
PROC: 0DJD8ZZ Inspection of Lower Intestinal Tract, Via Natural or Artificial Opening Endoscopic (ICD-10-PCS; 2017-01-30)
DX: K92.2 Gastrointestinal hemorrhage, unspecified (principal); J96.01 Acute respiratory failure with hypoxia; I50.21 Acute systolic (congestive) heart failure; D50.9 Iron deficiency anemia, unspecified; F10.20 Alcohol dependence, uncomplicated; I10 Essential (primary) hypertension; J44.1 Chronic obstructive pulmonary disease with (acute) exacerbation; E87.1 Hypo-osmolality and hyponatremia; E11.65 Type 2 diabetes mellitus with hyperglycemia; F17.210 Nicotine dependence, cigarettes, uncomplicated; E83.39 Other disorders of phosphorus metabolism; K44.9 Diaphragmatic hernia without obstruction or gangrene; K57.30 Diverticulosis of large intestine without perforation or abscess without bleeding
CPT/HCPCS: 36415; 71010; 80048; 80053; 80076; 82533; 82550; 82553; 82607; 82728; 82746; 82947; 83036; 83540; 83550; 83735; 83880; 83930; 83935; 84100; 84300; 84443; 84484; 85025; 85027; 85610; 85730; 86850; 86900; 86901; 86923; 87040; 93005; 93306; 94640; 94760; 96374; 99285; C9113; J1815; J1940; J2250; J2930; P9016